=== PATIENT | female | born 2000 | race Caucasian/White ===

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

== ENCOUNTER → 2022-07-19 | Outpatient (CLI) | payer OTHER ==
[2022-07-19 11:55] LABS: HEMATOCRIT 44.3 % (37.0-47.0); MEAN CORPUSCULAR HGB 30.8 pg (27.0-31.0); MEAN CORPUSCULAR HGB CONC 33.9 g/dl (33.0-37.0); MEAN PLATELET VOLUME 10.7 fl (9.6-12.3); RED BLOOD COUNT 4.87 10*6/uL (4.10-5.10); RED CELL DISTRI WIDTH 12.2 % (0-14.5); WHITE BLOOD COUNT 6.5 10*3/uL (4.8-10.8)
[2022-07-19 12:28] LABS: ALKALINE PHOSPHATASE 103 U/L (46-116); BUN 7 mg/dl (9-23); CHLORIDE 103 mmol/L (98-107); CHOLESTEROL 142 mg/dL (<200); FREE T4 0.93 ng/dl (0.89-1.76); LDL CHOLESTEROL 62 mg/dL (9-159); POTASSIUM 4.2 mmol/L (3.4-5.1); SGPT/ALT 16 U/L (10-49); THYROID STIM HORMONE (HS) 0.414 uIU/ml (0.550-4.780); TOTAL PROTEIN 7.4 gm/dL (6.0-8.0); TRIGLYCERIDES 74 mg/dl (<150)
[2022-07-19 12:45] LABS: VITAMIN D, 25-HYDROXY 24.8 ng/mL (30-100)
== END | disposition home or self-care (01) ==
LOC: LAB 11:30
PROVIDERS: ATTEND Family Medicine
DX: Z13.220 Encounter for screening for lipoid disorders (principal); E55.9 Vitamin D deficiency, unspecified; R53.83 Other fatigue; J40 Bronchitis, not specified as acute or chronic; N39.0 Urinary tract infection, site not specified; R05.9 Cough, unspecified